=== PATIENT | female | born 1980 | race Caucasian/White ===

== ENCOUNTER 2017-05-02 13:43 | Emergency (ER) | payer OTHER ==
--- NOTE | 2017-05-02 14:03 | EDPHY ---
H & P Time Seen by Provider: 05/02/17 14:00 HPI/ROS: CHIEF COMPLAINT: Back pain HISTORY OF PRESENT ILLNESS: This patient is a 36 year old female arriving with her complaining of lower back pain onset Tuesday evening 04/30/17. She underwent L5/S1 fusion with Dr. Romo at [facility] in November, six months ago. She states her pain has not relieved significantly since the surgery, and she is still taking oxycodone, Tylenol, and tizanidine for pain management. She states she was scheduled for a follow up appointment and MRI in June. Two nights ago, she states she rolled to her right side in bed and felt a sharp pain in her lower back. She reports she tried walking around to relieve it, but was unable to and the pain was so severe it prevented her from lying down. She states she called Dr. Romo's office Tuesday morning, and tried rest, ice, and heat with additional oxycodone for pain relief. She reports she has been unable to appropriately manage or relieve her pain. She states the pain is sharply localized to her sacral area, radiating down both legs and occasionally up her back as well. She denies incontinence or weakness or numbness in her legs. No fever, nausea, vomiting, or other associated symptoms. REVIEW OF SYSTEMS: Constitutional: No fever, no chills Eyes: No visual changes ENT: No sore throat Respiratory: No cough, no shortness of breath Cardiac: No chest pain Gastrointestinal: No nausea, no vomiting, no abdominal pain Genitourinary: No hematuria, no dysuria Skin: No rash Neurological: No headache, no numbness, no weakness Psychiatric: No depression Past Medical/Surgical History: Lumbar (L5/S1) fusion Bowel resection Social History: at bedside. Four children. Smoking Status: Never smoked Physical Exam: General Appearance: Alert, pleasant, appears in pain with movement Eyes: Pupils equal and round, no conjunctival pallor or injection ENT, Mouth: Mucous membranes moist Neck: Normal inspection Respiratory: Lungs are clear to auscultation Cardiovascular: Regular rate and rhythm Gastrointestinal: Abdomen is soft and non-tender Back: Midline lumbar tenderness Neurological: A&O, motor 5/5, patellar DTRs 2+ bilaterally Skin: Warm and dry, no rash Extremities: Nontender, no pedal edema Psychiatric: Mood and affect normal Constitutional: Initial Vital Signs Temperature (C) 36.8 C 05/02/17 13:52 Heart Rate 97 05/02/17 13:52 Respiratory Rate 18 05/02/17 13:52 Blood Pressure 114/74 05/02/17 13:52 O2 Sat (%) 97 05/02/17 13:52 O2 Delivery Mode Room Air Allergies/Adverse Reactions: acetaminophen [From Darvocet-N] Allergy (Verified 05/02/17 13:50) morphine Allergy (Verified 05/02/17 13:50) propoxyphene [From Darvocet-N] Allergy (Verified 05/02/17 13:50) Home Medications: Medication Instructions Recorded Adderall 05/02/17 Ambien 05/02/17 Oxycodone HCl 05/02/17 Synthroid 05/02/17 Xanax 05/02/17 Zoloft 05/02/17 methylPREDNISolone [Medrol Dose 1 each PO AD #1 ea 05/02/17 Karlos] tiZANidine HCL 05/02/17 Medical Decision Making - Diagnostics Imaging Results: Imaging Impressions Lumbar Spine MRI 05/02/17 14:21 Impression: 1. No acute findings in the lumbar spine with no visible etiology for the patient's pain. 2. Transpedicular screw and ra fusion from L5 through S1. 3. Please see findings at specific disk levels. Findings discussed with Lala Crystal, 05/02/2017, at [address] Johny Guerra reviewed the study and agrees with the findings. ED Course/Re-evaluation: This patient is a 36 year old female with history of L5/S1 fusion in November, presenting with a two day history of acute exacerbation of her low back pain. Plan for MRI. IV pain control with Morphine. Decadron 10mg IV given. 15:[address] Ricketts, radiologist. MRI negative for acute processes. 17:[address] Romo. Will f/u with pt in the office. Dr. Romo at bedside. He would like to order lumbar x-ray to further assess. Differential Diagnosis: Differential diagnosis for back pain includes muscular pain, herniated disc, epidural abscess, discitis, spine fracture, intra-abdominal causes and urinary tract infection. - Data Points Medications Given: Discontinued Medications Dexamethasone (Decadron Injection) 10 mg IVP EDNOW ONE Stop: 05/02/17 14:23 Last Admin: 05/02/17 14:36 Dose: 10 mg Hydromorphone HCl (Dilaudid) 1 mg IVP EDNOW ONE Stop: 05/02/17 14:22 Last Admin: 05/02/17 14:35 Dose: 1 mg Hydromorphone HCl (Dilaudid) 1 mg IVP EDNOW ONE Stop: 05/02/17 17:31 Last Admin: 05/02/17 17:30 Dose: 1 mg Ondansetron HCl (Zofran) 4 mg IVP EDNOW ONE Stop: 05/02/17 14:22 Last Admin: 05/02/17 14:35 Dose: 4 mg Departure - Departure Disposition: Home, Routine, Self-Care Clinical Impression: Back pain Qualifiers: Back pain location: low back pain Chronicity: unspecified Back pain laterality : bilateral Sciatica presence: without sciatica Qualified Code(s): M54.5 - Low back pain Condition: Good Instructions: Acute Low Back Pain (ED), Chronic Back Pain (ED) Additional Instructions: 1. Follow up this week with Dr. Romo and your pain management clinic for continued management of your symptoms. 2. We have increased your oxycodone dosage. You may take 40mg as prescribed every six hours. 3. We have prescribed you a Medrol Dosepak. Please take this medication as prescribed. 4. Return to the Emergency Department if you develop numbness or weakness in your legs, trouble controlling your bladder or bowels, uncontrollable pain, or other worsening of condition. Referrals: MARIA VICTORIA ZHANG [Other] - As per Instructions Tj Romo MD [Medical Doctor] - As per Instructions Prescriptions: methylPREDNISolone [Medrol Dose Karlos] 1 each PO AD #1 ea Report Scribed for: Lala Crystal Report Scribed by: Carrie James Date of Report: 05/02/17 Time of Report: 14:02 Physician Review and Approval Statement: 05/02/17 14:03 Portions of this note were transcribed by a medical auditor. I personally performed a history, physical exam, medical decision making, and confirmed accuracy of information the transcribed note.
[2017-05-02] MEDS ORDERED: ONDANSETRON 4 MG/2 ML VIAL IVP ONE (14:21)
[2017-05-02] MEDS ORDERED: HYDROmorphONE/DILAUDID 1 MG/ML SYR IVP ONE ×2 (14:21→17:30)
[2017-05-02] MEDS ORDERED: DEXAMETHASONE 10 MG/ML VIAL IVP ONE (14:22)
[2017-05-02] MEDS ORDERED: GADOBUTROL 10 ML VIAL IVP ONE (14:49)
[2017-05-02] MEDS ORDERED: HYDROmorphONE/DILAUDID 1 MG/ML SYR ONE (17:27)
[2017-05-02 18:09] VITALS: BP 106/68; PULSE 91; RESP 15; TEMP 98.8; O2SAT 95
--- NOTE | 2017-05-02 22:15 | GCON ---
[f rep st] CONSULTATION DATE OF CONSULTATION: 05/02/2017 TIME OF CONSULTATION: 4:45 p.m. HOSPITAL COURSE/HISTORY OF MAJOR MEDICAL FINDINGS: The patient is a 36-year- old female, who is well known to Dr. Romo's office for having a longstanding history of low back pain since she was a child. She was seeing Dr. Long of Pain Management. For several years underwent multiple injections in her lumbar spine. Ultimately, she underwent an MRI, which showed degenerative changes in the bilateral L5-S1 pars defect. She underwent injection with some relief and was taken to the operating room on 11/25/2016 for a right-sided trans lumbar interbody fusion with Dr. Romo. She presents to the ER today with severe acute low back pain. She states that this pain has become acute over the weekend. She does have some lateral pain shooting down her legs. She denies any loss of bowel or bladder control. She tried a few modalities at home including pain medications, ice and rest, which did not help with this pain. She does see Dr. Cruz with pain management. PAST MEDICAL HISTORY: Significant for chronic low back pain. MEDICATIONS: At home include Adderall, Ambien, oxycodone, Synthroid, Xanax, Zoloft, Medrol dose pack, and tizanidine. ALLERGIES: Include acetaminophen, morphine, and Darvocet. PAST SURGICAL HISTORY: Significant for lumbar fusion, as well as a history of bowel resection. SOCIAL HISTORY: The patient's is at bedside. She has never smoked, used any alcohol, or illicit drugs. FAMILY HISTORY: Noncontributory. PHYSICAL EXAMINATION: VITAL SIGNS: Temp 36.8, heart rate 77, respiratory rate is 18, BP is 114/74, and she is 97% on room air. GENERAL: Patient is in no acute distress. NEUROLOGIC: She is alert and oriented x3. She answers questions appropriately, and affect is appropriate given the situation. She is somewhat tearful though during the exam. Cranial nerves 2-12 are grossly intact. Face is symmetric. The patient is a 5/5 and equal in her bilateral upper and bilateral lower extremities including her deltoids, triceps, biceps, wrist flexors, extensors, interossei, intrinsic certified maintenance welder, iliopsoas, hamstrings, quadriceps, plantar flexion, dorsiflexion, EHL. Sensation is intact in bilateral lower extremities. The patient's incision is clean, dry, flat, and intact. DIAGNOSTIC REVIEW: Patient underwent a lumbar spine MRI, which demonstrated no acute findings with evidence of her L5-S1 fusion. There are some mild to moderate degenerative changes noted at L3 and L4-5 without any significant neural foraminal or canal stenosis. ASSESSMENT/PLAN: The patient is a 36-year-old female who presented to [facility] Emergency Room today with an acute exacerbation in her low back pain. Her MRI is negative for any acute compression. At this point in time, we discussed with the patient following with Dr. Cruz to make sure that her pain management is adequately managed, as well as to just discuss possible myofascial treatments for her pain including other injections. We will obtain a set of x-rays just to make sure that her hardware is intact without any evidence of failure. The patient is to follow up with our office after her visit with Dr. Cruz. The patient was seen both by Dr. Romo and myself in the emergency room. /[id number]/MODL MTDD
== END 2017-05-02 18:14 | disposition home or self-care (01) ==
DX: M54.5 Low back pain (principal)
CPT/HCPCS: 96374; A9585; J1170; J2405

== ENCOUNTER 2017-05-08 06:25 | Inpatient (IN) | payer OTHER ==
[2017-05-08] MEDS ORDERED: PROMETHAZINE HCL 25 MG/ML INJ IVP PRN (10:14)
[2017-05-08] MEDS ORDERED: ONDANSETRON 4 MG/2 ML VIAL IVP PRN (10:14)
[2017-05-08] MEDS ORDERED: HYDROmorphONE/DILAUDID 1 MG/ML SYR ONE (10:30)
[2017-05-08] MEDS: NS 1,000 ML IV SCH (10:45)
[2017-05-08] MEDS: HYDROmorphONE/DILAUDID 1 MG/ML SYR IVP PRN ×3 (10:54→20:05)
[2017-05-08] MEDS ORDERED: LUBIPROSTONE 8 MCG CAP PO PRN (11:14)
[2017-05-08] MEDS ORDERED: NON-FORMULARY NEW DRUG (Zolpidem Tartrate [Ambien 10 Mg] 10 MG) PO PRN (11:14)
[2017-05-08] MEDS ORDERED: ALPRAZOLAM PO PRN (11:14)
[2017-05-08] MEDS ORDERED: HYDROmorphONE/DILAUDID 2 MG TAB PO PRN (11:14)
[2017-05-08 11:30] LABS: % IMMATURE GRANULYOCYTES 0.4 % (0.0-1.1); ABSOLUTE IMMATURE GRANULOCYTES 0.03 10^3/uL (0.00-0.10); ADD DIFF? NO; ADD MORPH? NO; ADD SCAN? NO; ATYPICAL LYMPHOCYTE FLAG 20 (0-99); FRAGMENT RBC FLAG 0 (0-99); HEMATOCRIT 24.2 % (38.0-47.0); HEMOGLOBIN 7.7 g/dL (12.6-16.3); LEFT SHIFT FLG 0 (0-99); LIPEMIA HEMOLYSIS FLAG 80 (0-99); MEAN CELL HEMOGLOBIN 26.8 pg (27.9-34.1); MEAN CELL HEMOGLOBIN CONCENTR. 31.8 g/dL (32.4-36.7); MEAN CELL VOLUME 84.3 fL (81.5-99.8); MEAN PLATELET VOLUME 10.2 fL (8.7-11.7); PLATELET CLUMPS FLAG 0 (0-99); PLATELET COUNT 191 10^3/uL (150-400); RED BLOOD CELL COUNT 2.87 10^6/uL (4.18-5.33); RED CELL DISTRIBUTION WIDTH 14.5 % (11.5-15.2)
[2017-05-08] MEDS ORDERED: ALPRAZolam 0.5 MG TAB PO PRN (11:30)
[2017-05-08 11:57] LABS: ANION GAP 10 mEq/L (8-16); CALCIUM 7.8 mg/dL (8.5-10.4); CARBON DIOXIDE 19 mEq/l (22-31); CHLORIDE 115 mEq/L (97-110); CREATININE 0.5 mg/dL (0.6-1.0); GLOMERULAR FILTRATION RATE > 60; GLUCOSE 81 mg/dL (70-100); POTASSIUM 3.7 mEq/L (3.5-5.2); SODIUM 144 mEq/L (134-144)
[2017-05-08 12:00] LABS: INR 1.15 (0.83-1.16); PROTIME(PATIENT) 14.7 SEC (12.0-15.0)
[2017-05-08 12:01] LABS: APTT 28.6 SEC (23.0-38.0)
--- NOTE | 2017-05-08 12:09 | PDGENHP ---
History and Physical - Chief Complaint back pain - History of Present Illness 36 yo F with hx of chronic back pain with continuous narcotic use and dependency and lumbar laminectomy/fusion by Dr. Romo in 11/2016 with ongoing pain since then admitted with worsening pain and fever noted at outside hospital. She reports that for the last several weeks the pain has been much worse to the extent that she has had to call paramedics/firemen to come and help her get out of the bed. She has been seen at [facility] and [facility] over the last several weeks and also by her paperhanger and painter and neurosurgery for her worsening sxs, at least 4 ER visits. The last ER visit was this morning at which time a repeat MRI had a question of edema and enhancement at the L5/S1 vertebral bodies that could possibly be consistent with osteomyelitis. Given that patient is followed by [facility], decision was made to send her here for further evaluation where her NSG team can be involved. History Information - Allergies/Home Medication List Allergies/Adverse Reactions: morphine Allergy (Intermediate, Verified 05/08/17 11:08) Hives propoxyphene [From Darvocet-N] Allergy (Intermediate, Verified 05/08/17 11:08) Rash Home Medications: ALPRAZolam [Xanax] 0.5 - 2 mg PO BID PRN 05/02/17 [Last Taken 05/08/17 02:30] Amphet Asp and D/Amphet [Adderall 20 mg (*)] 10 - 20 mg PO DAILY PRN 05/02/17 [ Last Taken Unknown] Levothyroxine [Synthroid 125 mcg (*)] 125 mcg PO DAILY06 05/02/17 [Last Taken ] Sertraline HCl [Zoloft 100mg (*)] 100 mg PO DAILY 05/02/17 [Last Taken 05/05/17] Zolpidem Tartrate [Ambien 10 mg] 10 mg PO HS PRN 05/02/17 [Last Taken 05/07/17] tiZANidine HCL [Zanaflex] 4 mg PO TID PRN 05/02/17 [Last Taken 05/07/17] HYDROmorphone HCL [Dilaudid 2 mg (*)] 2 mg PO Q4 PRN 05/08/17 [Last Taken 21:00] Herbals/Supplements -Info Only 1 ea PO DAILY 05/08/17 [Last Taken Unknown] Lubiprostone [Amitiza 8 mcg (*)] 8 mcg PO BIDMEAL PRN 05/08/17 [Last Taken 2 Weeks Ago] I have personally reviewed and updated: family history, medical history, social history, surgical history - Past Medical History psychiatric history (depression/anxiety) Additional medical history: hypothyroid. chronic pain with continuous narcotic use and dependency - Surgical History Reports: cholecystectomy, spinal surgery (lumbar fusion/lami l5-s1) Additional surgical history: lap banc. c section. tonsillectomy. small bowel resection x 2. liposuction. breast augmentation - Family History Positive for: non-pertinent - Social History Smoking Status: Former smoker Alcohol Use: Occasionally Drug Use: None Review of Systems ROS: 10pt was reviewed & negative except for what was stated in HPI & below Physical Exam Constitutional: no apparent distress, appears nourished, uncomfortable Eyes: PERRL, anicteric sclera Ears, Nose, Mouth, Throat: moist mucous membranes, hearing normal Cardiovascular: regular rate and rhythym, no murmur, rub, or gallop, No edema Respiratory: no respiratory distress, no rales or rhonchi, clear to auscultation Gastrointestinal: normoactive bowel sounds, soft, non-tender abdomen, no palpable masses Genitourinary: no bladder tenderness Skin: warm, normal color Musculoskeletal: full muscle strength, no muscle tenderness Neurologic: AAOx3, sensation intact bilaterally, CN II-XII Intact Psychiatric: interacting appropriately, not encephalopathic, anxious Lab Data & Imaging Review 05/08/17 11:10 05/08/17 11:10 WBC 7.52 10^3/uL (3.80-9.50) 05/08/17 11:10 RBC 2.87 10^6/uL (4.18-5.33) L 05/08/17 11:10 Hgb 7.7 g/dL (12.6-16.3) L 05/08/17 11:10 Hct 24.2 % (38.0-47.0) L 05/08/17 11:10 MCV 84.3 fL (81.5-99.8) 05/08/17 11:10 MCH 26.8 pg (27.9-34.1) L 05/08/17 11:10 MCHC 31.8 g/dL (32.4-36.7) L 05/08/17 11:10 RDW 14.5 % (11.5-15.2) 05/08/17 11:10 Plt Count 191 10^3/uL (150-400) 05/08/17 11:10 MPV 10.2 fL (8.7-11.7) 05/08/17 11:10 Neut % (Auto) 66.0 % (39.3-74.2) 05/08/17 11:10 Lymph % (Auto) 24.1 % (15.0-45.0) 05/08/17 11:10 [place] % (Auto) 7.6 % (4.5-13.0) 05/08/17 11:10 Eos % (Auto) 1.6 % (0.6-7.6) 05/08/17 11:10 Baso % (Auto) 0.3 % (0.3-1.7) 05/08/17 11:10 Nucleat RBC Rel Count 0.0 % (0.0-0.2) 05/08/17 11:10 Absolute Neuts (auto) 4.97 10^3/uL (1.70-6.50) 05/08/17 11:10 Absolute Lymphs (auto) 1.81 10^3/uL (1.00-3.00) 05/08/17 11:10 Absolute Monos (auto) 0.57 10^3/uL (0.30-0.80) 05/08/17 11:10 Absolute Eos (auto) 0.12 10^3/uL (0.03-0.40) 05/08/17 11:10 Absolute Basos (auto) 0.02 10^3/uL (0.02-0.10) 05/08/17 11:10 Absolute Nucleated RBC 0.00 10^3/uL (0-0.01) 05/08/17 11:10 Immature Gran % 0.4 % (0.0-1.1) 05/08/17 11:10 Immature Gran # 0.03 10^3/uL (0.00-0.10) 05/08/17 11:10 Visualized and Interpreted imaging results: Yes Interpretation: lumbar MRI from one week ago--normal Assessment & Plan Assessment: 36 yo F with chronic back pain and fairly recent lumbar fusion surgery presenting with fever and worsening back pain # acute on chronic back pain: significantly increased from prior to the point where she is having difficulty ambulating and is unable to control her pain on her usual narcotic regimen. NSG has evaluated and plan to look at MRI from [facility] to determine whether there are concerns for osteo or other acute neurosurgical issue. # fever: reported from outside hospital but not present here since admission, normal wbc and no other sirs criteria present. Monitoring. Blood cultures drawn. No murmur. Holding off on antibiotics for now. # acute on chronic anemia: h/h significantly lower than previous values on admission here, even lower than at [facility] earlier this morning. Nothing to suggest acute blood loss on hx or exam. Will repeat h/h, possibly lab error. Consider CT abd to r/o retroperitoneal bleed if remains this low. Will check iron studies/occult blood. # chronic narcotic use and dependency: followed by Dr. Geller of pain management, has been compliant with her pain plan # depression/anxiety: continue home medications, unclear how this is contributing, has a plan to get involved with pain psychologist # IP status, will need > 48 hours stay for eval/mgmt of above given high risk with need for IV opiates and close monitoring Patient is new to my care. Old records reviewed and summarized as above. Care plan reviewed with NSG including plans for infectious w/u.
--- NOTE | 2017-05-08 12:32 | GCON ---
[f rep st] CONSULTATION NEUROSURGICAL CONSULTATION REASON FOR CONSULTATION: Unrelenting back pain and concern for surgical site infection. HOSPITAL COURSE/HISTORY/MAJOR MEDICAL FINDINGS: The patient is a 36-year-old female, who is well known to Dr. Romo's office as she underwent an L5-S1 lumbar fusion for bilateral pars defect on 11/25/2016. The patient tolerated this procedure well; however she developed acute lower back pain approximately 1 week ago and was seen in the [facility] emergency room at that time. She underwent MRI imaging which was negative for any acute findings within her L5-S1 fusion. There was some lnax-jb-udjztjsn degenerative changes noted at L3- 4 and L4-5 without any significant neural foraminal narrowing or canal stenosis. The patient continued to have localized low back pain as well as bilateral/lateral leg pain. She was seen by her pain management doctor on Tuesday, and had some of her pain medications increased and adjusted. The patient had continued unrelenting back pain and went into [facility] for further evaluation. They did an MRI at that time which is not currently available for review. There was some concern about an infection so she was transferred here for further definitive care. The patient today states that approximately 1 month ago, she did have a tooth pulled for an abscess, but denies any other infections. She did state that she had a fever in the last 24 hours, but denies any other nausea or vomiting. Denies any loss of bowel or bladder control. Denies any new weakness. REVIEW OF SYSTEMS: Review of systems is negative other than what is stated in the HPI. Please see pertinent negatives, pertinent positives. PAST MEDICAL HISTORY: Significant for chronic low back pain. PAST SURGICAL HISTORY: Significant of a bowel resection and lumbar fusion. HOME MEDICATIONS: Include Adderall, Ambien, oxycodone, Synthroid, Xanax, Zoloft , Medrol Dosepak and tizanidine. ALLERGIES: Include acetaminophen, morphine and Darvocet. SOCIAL HISTORY: The patient is . She has never smoked, used alcohol or illicit drugs. FAMILY HISTORY: Noncontributory. The patient does see Dr. Roach with pain management. PHYSICAL EXAM: VITAL SIGNS: BP 106/68. Her heart rate is 91. She is 95% on room air and temperature is 37.1, which is also her T-max since admission. NEUROLOGIC: The patient is in no acute distress. She is alert and oriented x3. She answers questions appropriately. Affect is appropriate given situation. Cranial nerves 2-12 are grossly intact. EOMI and PERRLA. The patient has 5/5 and equal in bilateral upper and bilateral lower extremities including her deltoids, triceps, biceps, wrist flexors, extensors, interossei, intrinsic hairmasters manager, iliopsoas, hamstrings, quadriceps, plantar flexion, dorsiflexion , EHL. ASSESSMENT AND PLAN: The patient is a 36-year-old female, who has underwent a lumbar fusion at L5-S1 by Dr. Romo approximately 1 month ago, who has been developing worsening low back pain and bilateral/lateral leg pain. She underwent some outside imaging which had some concerns per their report, and she was transferred here to rule out any definitive infection. Upon examination of the patient today, she is afebrile and her white blood cell count is 7.52. Discussed this in detail with Dr. Tj Romo. At this point in time, we will go ahead and order an ESR and CRP to evaluate for any raised inflammatory markers. I would recommend optimizing pain management. Physical therapy/occupational therapy as tolerated. We will review MRI images once available and loaded into the system. /[id number]/MODL MTDD
[2017-05-08 12:43] LABS: HEMATOCRIT 24.3 % (38.0-47.0)
[2017-05-08] MEDS: oxyCODONE IR 5 MG TAB PO PRN ×3 (13:29→23:13)
[2017-05-08 14:39] LABS: HEMATOCRIT 29.9 % (38.0-47.0); HEMOGLOBIN 9.5 g/dL (12.6-16.3)
[2017-05-08 15:39] LABS: COLOR YELLOW; LEUKOCYTE ESTERASE,URINE NEGATIVE (NEGATIVE); NITRITE,URINE NEGATIVE (NEGATIVE)
[2017-05-08] MEDS: LORazepam 2 MG/ML INJ IVP PRN ×2 (15:51→20:33)
[2017-05-08] MEDS: VANCOMYCIN 1.25 GM in D5W 250 ML IV SCH (18:58)
[2017-05-08] MEDS ORDERED: NALOXONE HCL 0.4 MG/ML INJ IVP PRN (20:54)
[2017-05-08] MEDS: HYDROmorphONE/DILAUDID 6 MG/30 ML PCA IV PRN (21:16)
[2017-05-08] MEDS: CEFEPIME HCL 2 GM in D5W 100 ML IV SCH (21:16)
[2017-05-08] MEDS: ZOLPIDEM TARTRATE 5 MG TAB PO PRN (23:13)
[2017-05-09] MEDS: ACETAMINOPHEN 325 MG TAB PO PRN ×3 (01:01→23:46)
[2017-05-09] MEDS: oxyCODONE IR 5 MG TAB PO PRN ×7 (03:48→23:47)
[2017-05-09] MEDS: LEVOTHYROXINE 125 MCG TAB PO SCH (06:19)
[2017-05-09] MEDS: VANCOMYCIN 1.25 GM in D5W 250 ML IV SCH ×2 (06:28→18:43)
[2017-05-09] MEDS: SERTRALINE HCL 100 MG TAB PO SCH (07:59)
[2017-05-09] MEDS: CEFEPIME HCL 2 GM in D5W 100 ML IV SCH ×2 (07:59→20:30)
--- NOTE | 2017-05-09 08:20 | NEUSURGPN ---
Assessment/Plan: Assessment: 36 yo female that is admitted with acute lower back pain and concern for disc/osteo/infection Plan: -LBP with ?infection: Pt scheduled for IR biopsy today -Spoke with Dr Gale to consult from ID-appreciate his input -PT/OT -discussed with Dr Romo -MRI looks concerning for infection -abx ordered already -pending blood cultures -call with any questions or concerns -pt understands and agrees -RN updated Subjective: Awake and alert. Pt with better pain control. No espinoza/neck/chest/abd or gu complaints. Objective: AAO x 3, PERRLA/EOMI no droop CN 2-12 grossly intact +lt touch 5/5 BUE/BLE = except to bilat q/h/ip due to pain in the back CDI Neuro Check Frequency: per routine Urinary Catheter in Place: No - Physician Discussed Patient with : [facility] Physical Exam - Vitals, I&O, Labs I and O 05/08/17 05/09/17 05/10/17 05:59 05:59 05:59 Intake Total 1319 Output Total 5100 Balance -3781 Weight 63.9 kg Intake: IV Infused (ml) 1319 Ns 1,000 ml @ 100 mls/hr 1319 IV CONT RYAN Rx#: [id number] Output: Urine (ml) 5100 Bedpan 5100 Other: Number of Voids Bedpan 1 Vital Signs Temp Pulse Resp BP Pulse Ox 36.6 C 112 H 16 109/80 98 05/09/17 08:00 05/09/17 06:23 05/09/17 06:23 05/09/17 06:23 05/09/17 06:23 Laboratory Results 05/08/17 14:15 05/08/17 11:10 ICD10 Worksheet Patient Problems: Problems Problem Status Onset Back pain Acute Lumbar radicular pain Acute Lumbar radiculitis Acute - ICD10 Problem Qualifiers (1) Back pain Qualifiers: Back pain location: B Chronicity: C Back pain laterality: B Sciatica presence: S Sciatica laterality: S (2) Lumbar radicular pain (3) Lumbar radiculitis
[2017-05-09] MEDS: HYDROmorphONE/DILAUDID 6 MG/30 ML PCA IV PRN (11:04)
--- NOTE | 2017-05-09 11:51 | HOSPPROG ---
Hospitalist Progress Note Assessment/Plan: 36 yo F with PMH of chronic pain and fairly recent lumbar spinal surgery presenting with increasing lower back pain, fever and e/o discitis/ osteomyelitis on lumbar imaging # discitis vs osteomyelitis: in setting of lumbar fusion in November, plan is for IR biopsy today, started on empiric abx with vanc/cefepime for now. ID consulted. No murmur on exam. Did have dental work last month but no other recent interventions. # gpc bacteremia: from OSH there is initial report of GPC in clusters with further info pending. Repeat cultures with ngtd from yesterday. As above. # acute on chronic pain with continuous narcotic use and dependency: on fairly high doses of pain medications at home chronically making pain mgmt more difficult, pain now controlled with LOAN REVIEW ANALYST. Will attempt to transition back to her home regimen in coming days. # chronic medical issues: depression/anxiety, chronic constipation (bowel protocol), hypothyroid IP status, will need > 48 hours stay for eval/mgmt of above Subjective: no significant overnight events, pain is currently controlled on internal medicine physician Objective: Vital Signs Temp Pulse Resp BP Pulse Ox 36.6 C 112 H 16 109/80 98 05/09/17 08:00 05/09/17 06:23 05/09/17 06:23 05/09/17 06:23 05/09/17 06:23 Laboratory Results 05/08/17 14:15 05/08/17 11:10 05/08/17 05/09/17 05/10/17 05:59 05:59 05:59 Intake Total 1319 Output Total 5100 750 Balance -3781 -750 PT 14.7 SEC (12.0-15.0) 05/08/17 11:30 INR 1.15 (0.83-1.16) 05/08/17 11:30 awake alert nad anicteric op clear rrr no mrg cta soft nt nd no cce warm dry well perfused ICD10 Worksheet Patient Problems: Problems Problem Status Onset Back pain Acute Lumbar radicular pain Acute Lumbar radiculitis Acute
[2017-05-09] MEDS ORDERED: MIDAZOLAM 2 MG/2 ML VIAL ONE ×2 (12:42→13:42)
[2017-05-09] MEDS ORDERED: fentaNYL 100 MCG/2 ML INJ ONE ×2 (12:42→13:43)
[2017-05-09] MEDS ORDERED: LIDOCAINE 1% 300 MG/30 ML SDV ONE ×2 (13:20→13:38)
[2017-05-09] MEDS ORDERED: FLUMAZENIL 0.5 MG/5 ML MDV IVP ONE (13:48)
[2017-05-09] MEDS ORDERED: HYDROmorphONE/DILAUDID 1 MG/ML SYR ONE (15:33)
[2017-05-09] MEDS: HYDROmorphONE/DILAUDID 1 MG/ML SYR IVP PRN (15:38)
--- NOTE | 2017-05-09 16:56 | POSTOPPROG ---
Post Op Note Date of Operation: 05/09/17 Surgeon: Haylee Nicholas Anesthesia: IV Sedation (fentanyl and versed) Pre-op Diagnosis: post fusion Post-op Diagnosis: post fusion Indication: severe pain, elevated inflammatory markers Procedure: S1 bone Bx/aspiration Findings: very soft bone Inf/Abcess present in the surg proc area at time of surgery?: No Depth: Superfical (Skin SQ) EBL: Minimal Complications: none Specimen(s): S1 bone bx and aspiration
--- NOTE | 2017-05-09 18:29 | GCON ---
[f rep st] CONSULTATION INPATIENT INFECTIOUS DISEASE CONSULTATION REFERRING PHYSICIAN: Trevor Hoang PA-C REASON FOR REFERRAL: Diskitis. HISTORY OF PRESENT ILLNESS: The patient is a 36-year-old female, who underwent a laminectomy and fu jerald in November of this year with Dr. Davide Thorne. She presented to [facility] on 2016 complaining of worsening back pain. The patient also noted having fevers as well. The patient had been visiting [facility], as well as [facility] for these worsening symptoms . A repeat MRI during these visit showed enhancement of the L5-S1 vertebral bodies, possibly consis tent with osteomyelitis. She is admitted here for workup and empiric treatment. She was started on both vancomycin and cefepime. Aspiration of the disk space is scheduled for today. PAST MEDICAL HISTORY: 1. Chronic back pain. 2. Depression with anxiety. 3. Hypothyroidism. PAST SURGICAL HISTORY: 1. Status post cholecystectomy. 2. Status post lumbar fusion with laminectomy L5-S1. 3. Status post . 4. Status post tonsillectomy. 5. Status post small bowel resection x2. 6. Status post liposuction. 7. Status post breast augmentation. ANTIBIOTICS: 1. Vancomycin. 2. Cefepime. ALLERGIES: The patient is allergic to morphine and propoxyphene. SOCIAL HISTORY: The patient is a prior tobacco user. Only occasionally has an alcoholic drink. De nies any drug use. FAMILY HISTORY: Noncontributory. REVIEW OF SYSTEMS: Other than that detailed above in history of present illness, a comprehensive 10 -system review is negative. PHYSICAL EXAMINATION: VITAL SIGNS: Temperature maximum is 37.7, temperature current is 36.6, heart rate is 112, respiratory rate is 16, blood pressure is 109/80. GENERAL: The patient is a well-for med, well-nourished female in no acute distress. She is not toxic in appearance. She is alert and oriented x3. She has a pleasant demeanor. HEENT: Normocephalic for age. Atraumatic. No scleral icterus. No oral lesion. No drainage from the nares. Eyes, lids and conjunctivae are within federico l limits. Pupils are equal and round bilaterally. NECK: Supple without meningismus. LUNGS: Elvira r to auscultation bilaterally with good effort. HEART: Regular rate and rhythm. No murmur, rub, o r gallop noted. No significant peripheral edema. SKIN: Warm and dry to the touch. No rash noted. No other lesions noted. MUSCULOSKELETAL: No other muscle belly tenderness is noted. No joint li ne effusion or arthritis is seen. NEURO: Cranial nerves 2-12 seem to be intact. Peripheral sensat ion seems intact in extremities. LABORATORY DATA: The patient has a CBC dated 05/08/2017, shows a white blood cell count 7.5, hemogl obin 7.7, hematocrit 24.2, and platelet count of 191. Differentials within normal limits. Sediment ation rate is 94. Serum chemistries on 05/08/2017 show sodium of 144, potassium of 3.7, chloride of 115, bicarb of 19, BUN of 6, creatinine 0.5. C-reactive protein on 05/08/2017 is 176.1. MICROBIOLOGIC DATA: The patient has blood cultures dated 05/08/2017. Back tissue aspirate dated is pending. ASSESSMENT: Probable diskitis. This is in a site of prior surgery and hardware. The patient did h ave a dental work done 1 month prior. We will wait and see what the cultures of the aspiration reve al. Currently, she is covered on both vancomycin and cefepime. This is broad considering the circu mstance. We will stick with this until we get some guidance from Gram stain or culture. PLAN: 1. Continue both vancomycin and cefepime. 2. Check Vanco trough prior to 4th dose. 3. Follow up on culture data. Narrow as results dictate. /[id number]/MODL
[2017-05-09] MEDS: ONDANSETRON DISINTEGRATING 4 MG TAB PO PRN (20:30)
[2017-05-09] MEDS: LORazepam 2 MG/ML INJ IVP PRN (20:47)
[2017-05-09] MEDS: ZOLPIDEM TARTRATE 5 MG TAB PO PRN (23:52)
[2017-05-10] MEDS: oxyCODONE IR 5 MG TAB PO PRN ×7 (02:00→22:21)
[2017-05-10] MEDS: LEVOTHYROXINE 125 MCG TAB PO SCH (05:55)
[2017-05-10] MEDS: VANCOMYCIN 1.25 GM in D5W 250 ML IV SCH ×2 (05:55→19:15)
[2017-05-10] MEDS: HYDROmorphONE/DILAUDID 6 MG/30 ML PCA IV PRN (07:42)
--- NOTE | 2017-05-10 08:59 | NEUSURGPN ---
<Maddi Slade - Last Filed: 05/10/17 08:56> Assessment/Plan: Assessment: 36 yo female that is admitted with acute lower back pain and concern for disc/osteo/infection Plan: -LBP with ?infection: Pt had IR biopsy yesterday- results pending -Spoke with Dr Gale to consult from ID-appreciate his input -PT/OT- may be up ad keanu -MRI looks concerning for infection -abx ordered already- On cefepime and Vanc currently -pending blood cultures -ESR and CRP elevated -call with any questions or concerns -Patient seen and discussed with Dr. Romo Subjective: Awake and alert. Has not been out of bed yet. Worsening back pain today after IR biopsy yesterday. Has bilateral leg pain in hips/thighs. Objective: NAD, VSS +lt touch 5/5 BUE/BLE = except to bilat q/h/ip due to pain in the back CDI - Physician Discussed Patient with : Clarissa Patient Seen by : Clarissa Neurosurgery Physical Exam - Vitals, I&O, Labs I and O 05/09/17 05/10/17 05/11/17 05:59 05:59 05:59 Intake Total 1319 2917.5 Output Total 5100 1600 Balance -3781 1317.5 Weight 63.9 kg Intake: IV Infused (ml) 1319 2917.5 HYDROmorphone HCL See 33.5 Protocol IV PRN PRN Rx#: [id number] Ns 1,000 ml @ 100 mls/hr 1319 2884 IV CONT RYAN Rx#: [id number] Output: Urine (ml) 5100 1600 Bedpan 5100 1600 Other: Number of Voids Bedpan 1 1 Microbiology 05/09/17 15:00 Gram Stain - Final Back - Tissue Vital Signs Temp Pulse Resp BP Pulse Ox 36.7 C 105 H 17 119/78 92 05/10/17 00:00 05/10/17 00:00 05/10/17 00:00 05/10/17 00:00 05/10/17 00:00 Laboratory Results 05/08/17 14:15 05/08/17 11:10 ICD10 Worksheet Patient Problems: Problems Problem Status Onset Back pain Acute Lumbar radicular pain Acute Lumbar radiculitis Acute <Tj Romo - Last Filed: 05/10/17 09:26> Assessment/Plan: I met with the patient this morning. Will try to increase her activity today. If she tolerates being upright, then we can get her activity more ad keanu. My suspicion for infection is low as the changes on her imaging show changes but she is also about 6 months out from fusion surgery. Will await the biopsy results and continue with pain medications. All questions answered. Her MRI does NOT show any concerning stenosis or nerve root compression. No surgical or re-imaging plans indicated at this time and will defer to ID and Medicine on course of treatment. Appreciate their assistance in this very difficult case. Neurosurgery Physical Exam - Vitals, I&O, Labs I and O 05/09/17 05/10/17 05/11/17 05:59 05:59 05:59 Intake Total 1319 2917.5 Output Total 5100 1600 Balance -3781 1317.5 Weight 63.9 kg Intake: IV Infused (ml) 1319 2917.5 HYDROmorphone HCL See 33.5 Protocol IV PRN PRN Rx#: [id number] Ns 1,000 ml @ 100 mls/hr 1319 2884 IV CONT RYAN Rx#: [id number] Output: Urine (ml) 5100 1600 Bedpan 5100 1600 Other: Number of Voids Bedpan 1 1 Microbiology 05/09/17 15:00 Gram Stain - Final Back - Tissue Vital Signs Temp Pulse Resp BP Pulse Ox 36.7 C 94 16 115/77 95 05/10/17 00:00 05/10/17 08:00 05/10/17 08:00 05/10/17 08:00 05/10/17 08:00 Laboratory Results 05/08/17 14:15 05/08/17 11:10
[2017-05-10] MEDS: CEFEPIME HCL 2 GM in D5W 100 ML IV SCH ×2 (09:09→20:53)
[2017-05-10] MEDS: SERTRALINE HCL 100 MG TAB PO SCH (09:09)
--- NOTE | 2017-05-10 11:54 | PCMIDPN ---
Assessment/Plan: Assessment/Plan: 1. Possible diskitis L5,S1: - s/p bone biopsy - Pt was given vanco,cefepime at [facility] prior to transfer here. -GS with no org, Cultures are pending -Blood cx here are ngtd but are after antbx from [facility]. -Records from [facility] reviewed on [facility]. She did not have blood cx done there. UA and culture were unremarkable there. -Dental infection with possible abscess per patient one month ago, s/p amox x 10 days. -c/o of dysuria at present, will recheck urine -Continue vanco, cefepime for now while cx in progress and have further matured. Check vanco trough later today.Add LFT to blood work -REviewed lab results, and cultures with patient today. Reviewed plan of care. Meds vanco 1.25gm q12- cefepime 2g q12- Subjective: Afebrile. Sitting up in chair at present. Hasn't slept well past two days.Denies sob, abd pain. no recent diarrhea although admits to diarrhea a couple of weeks ago for a few days wherein she finally took immodium. She tells me that a month ago she did have a possible dental abscess and she was prescribed amoxicillin a couple days before she had tooth extracted and area cleaned out. She still has another took in upper right that problems. She took amox for 10 days. Objective: Vital Signs Temp Pulse Resp BP Pulse Ox 36.7 C 94 16 115/77 95 05/10/17 00:00 05/10/17 08:00 05/10/17 08:00 05/10/17 08:00 05/10/17 08:00 Microbiology 05/09/17 15:00 Gram Stain - Final Back - Tissue Laboratory Results 05/08/17 14:15 05/08/17 11:10 05/09/17 05/10/17 05/11/17 05:59 05:59 05:59 Intake Total 1319 2917.5 Output Total 5100 1600 Balance -3781 1317.5 ESR 94 MM/HR (0-20) H 05/08/17 12:36 C-Reactive Protein 176.1 mg/L (<10.0) H 05/08/17 12:36 - Physical Exam General Appearance: alert, no apparent distress Respiratory: lungs clear Cardiac/Chest: regular rate, rhythm Extremities: No swelling Abdomen: normal bowel sounds, non-tender, soft, No distended Skin: No erythema ICD10 Worksheet Patient Problems: Problems Problem Status Onset Back pain Acute Lumbar radicular pain Acute Lumbar radiculitis Acute
--- NOTE | 2017-05-10 15:09 | HOSPPROG ---
Hospitalist Progress Note Assessment/Plan: 36 yo F with PMH of chronic pain and fairly recent lumbar spinal surgery presenting with increasing lower back pain, fever and e/o discitis/ osteomyelitis on lumbar imaging # discitis vs osteomyelitis: in setting of lumbar fusion in November, plan is for IR biopsy today, started on empiric abx with vanc/cefepime for now. ID consulted. No murmur on exam. Did have dental work last month but no other recent interventions. Pain and mobility improving. # gpc bacteremia: from OSH there is initial report of GPC in [facility] per call from their micro lab, though the report is not available in [facility]. Repeat cultures here with ngtd. # acute on chronic pain with continuous narcotic use and dependency: on fairly high doses of pain medications at home chronically making pain mgmt more difficult, pain now controlled with FINANCIAL ANALYSIS ADVISOR. Will attempt to transition back to her home regimen in coming days. # chronic medical issues: depression/anxiety, chronic constipation (bowel protocol), hypothyroid IP status, will need > 48 hours stay for eval/mgmt of above Subjective: no significant overnight events, patient feeling a bit better with pain improved and able to walk some on her own Objective: Vital Signs Temp Pulse Resp BP Pulse Ox 36.7 C 94 16 115/77 95 05/10/17 00:00 05/10/17 08:00 05/10/17 08:00 05/10/17 08:00 05/10/17 08:00 Microbiology 05/09/17 15:00 Mycobacterial Smear (ZAINAB) - Final Back - Tissue 05/09/17 15:00 Gram Stain - Final Back - Tissue Laboratory Results 05/08/17 14:15 05/08/17 11:10 05/09/17 05/10/17 05/11/17 05:59 05:59 05:59 Intake Total 1319 2917.5 Output Total 5100 1600 Balance -3781 1317.5 PT 14.7 SEC (12.0-15.0) 05/08/17 11:30 INR 1.15 (0.83-1.16) 05/08/17 11:30 awake alert nad anicteric op clear rrr no mrg cta soft nt nd no cce warm dry well perfused ICD10 Worksheet Patient Problems: Problems Problem Status Onset Back pain Acute Lumbar radicular pain Acute Lumbar radiculitis Acute
[2017-05-10 16:54] LABS: COLOR PALE YELLOW; LEUKOCYTE ESTERASE,URINE NEGATIVE (NEGATIVE); NITRITE,URINE NEGATIVE (NEGATIVE)
[2017-05-10] MEDS: ACETAMINOPHEN 325 MG TAB PO PRN (18:15)
[2017-05-10] MEDS: ONDANSETRON DISINTEGRATING 4 MG TAB PO PRN (21:13)
[2017-05-10] MEDS: ZOLPIDEM TARTRATE 5 MG TAB PO PRN (22:25)
[2017-05-11] MEDS: NS 1,000 ML IV SCH ×2 (00:28→13:23)
[2017-05-11] MEDS: oxyCODONE IR 5 MG TAB PO PRN ×8 (01:31→23:44)
[2017-05-11] MEDS: HYDROmorphONE/DILAUDID 6 MG/30 ML PCA IV PRN (04:54)
[2017-05-11] MEDS: LEVOTHYROXINE 125 MCG TAB PO SCH (05:00)
[2017-05-11 05:11] LABS: % IMMATURE GRANULYOCYTES 0.5 % (0.0-1.1); ABSOLUTE IMMATURE GRANULOCYTES 0.03 10^3/uL (0.00-0.10); ADD DIFF? NO; ADD MORPH? NO; ADD SCAN? NO; ATYPICAL LYMPHOCYTE FLAG 40 (0-99); FRAGMENT RBC FLAG 0 (0-99); HEMATOCRIT 27.6 % (38.0-47.0); HEMOGLOBIN 8.7 g/dL (12.6-16.3); LEFT SHIFT FLG 0 (0-99); LIPEMIA HEMOLYSIS FLAG 80 (0-99); MEAN CELL HEMOGLOBIN CONCENTR. 31.5 g/dL (32.4-36.7); MEAN CELL VOLUME 82.6 fL (81.5-99.8); MEAN PLATELET VOLUME 9.8 fL (8.7-11.7); PLATELET CLUMPS FLAG 0 (0-99); PLATELET COUNT 307 10^3/uL (150-400); RED BLOOD CELL COUNT 3.34 10^6/uL (4.18-5.33); RED CELL DISTRIBUTION WIDTH 13.8 % (11.5-15.2)
[2017-05-11 05:27] LABS: ALANINE AMINOTRANSFERASE 80 IU/L (9-52); ALBUMIN 2.7 g/dL (3.5-5.0); ALKALINE PHOSPHATASE 214 IU/L (38-126); ANION GAP 7 mEq/L (8-16); ASPARTATE AMINOTRANSFERASE 55 IU/L (14-46); BILIRUBIN,TOTAL 0.5 mg/dL (0.1-1.4); CALCIUM 9.1 mg/dL (8.5-10.4); CARBON DIOXIDE 26 mEq/l (22-31); CHLORIDE 107 mEq/L (97-110); CREATININE 0.6 mg/dL (0.6-1.0); GLOMERULAR FILTRATION RATE > 60; GLUCOSE 99 mg/dL (70-100); SODIUM 140 mEq/L (134-144); TOTAL PROTEIN 5.6 g/dL (6.3-8.2)
[2017-05-11] MEDS: VANCOMYCIN 1.25 GM in D5W 250 ML IV SCH ×2 (07:36→19:11)
[2017-05-11] MEDS: ONDANSETRON DISINTEGRATING 4 MG TAB PO PRN ×3 (07:37→22:17)
--- NOTE | 2017-05-11 07:48 | SOAPPROG ---
SOAP Progress Note Assessment/Plan: Assessment: 36yo female 6 months out from lumbar fusion with severe back pain and concern for infection Neuro intact with ongoing LBP s/p IR guided biopsy results pending Plan: activity as tolerated continue pain mgmt. await biopsy results continue Abx per ID 05/11/17 07:46 Subjective: out of bed in chair. Still with severe LBP denies weakness or tingling. Objective: Vital Signs Temp Pulse Resp BP Pulse Ox 36.6 C 62 16 109/64 98 05/11/17 07:30 05/11/17 07:30 05/11/17 07:30 05/11/17 07:30 05/11/17 07:30 Microbiology 05/09/17 15:00 Mycobacterial Smear (ZAINAB) - Final Back - Tissue 05/09/17 15:00 Gram Stain - Final Back - Tissue Laboratory Results 05/11/17 04:55 05/11/17 04:55 05/10/17 05/11/17 05/12/17 05:59 05:59 05:59 Intake Total 2917.5 3033 Output Total 1600 875 Balance 1317.5 2158 PT 14.7 SEC (12.0-15.0) 05/08/17 11:30 INR 1.15 (0.83-1.16) 05/08/17 11:30 Neuro: BHAT, sens +Lt ICD10 Worksheet Patient Problems: Problems Problem Status Onset Back pain Acute Lumbar radicular pain Acute Lumbar radiculitis Acute
[2017-05-11] MEDS: SERTRALINE HCL 100 MG TAB PO SCH (08:06)
[2017-05-11] MEDS: ACETAMINOPHEN 325 MG TAB PO PRN ×3 (08:07→22:11)
[2017-05-11] MEDS: CEFEPIME HCL 2 GM in D5W 100 ML IV SCH (09:36)
--- NOTE | 2017-05-11 12:35 | PCMIDPN ---
Assessment/Plan: # S aureus bacteremia, unclear source. Possible discitis L5-S1. Also with #20 weight loss unintentional x 6 mo. Blood cx at OSH with SA, repeat cx here are NGTD after 1-2 doses antibiotics, no stigmata endocarditis --dc cefepime --awaiting lab report from outside hospital, continue coverage with vancomycin until report reviewed (Cx not listed in [facility] for some reason); Vanco T a bit low but hold off on repeat trough bc may be able to switch to cefazolin --obtain CT lumbar spine without contrast per neursurg recs --obtain CT a/p with/without constant to eval weight loss, other source of bacteremia --reviewed need for PICC line, length of therapy as long as 8 weeks, side effects of vancomycin # Dental caries L upper molar - mild surrounding gum inflammation, doubt source of SA bacteremia # H/o gastric banding meds vancomycin 1.25gm IV q12h, #3 cefepime 2gm IV q12h, #3 microbiology 05/08 blood cx (2) NGTD 05/09 bone cx : gram stain neg; cx NGTD Subjective: significant improvement in back pain since admit Objective: Vital Signs Temp Pulse Resp BP Pulse Ox 36.6 C 86 16 102/54 L 94 05/11/17 07:30 05/11/17 12:07 05/11/17 07:30 05/11/17 12:07 05/11/17 10:00 Microbiology 05/09/17 15:00 Mycobacterial Smear (ZAINAB) - Final Back - Tissue 05/09/17 15:00 Gram Stain - Final Back - Tissue Laboratory Results 05/11/17 04:55 05/11/17 04:55 05/10/17 05/11/17 05/12/17 05:59 05:59 05:59 Intake Total 2917.5 3033 Output Total 1600 875 Balance 1317.5 2158 ESR 94 MM/HR (0-20) H 05/08/17 12:36 C-Reactive Protein 176.1 mg/L (<10.0) H 05/08/17 12:36 - Physical Exam General Appearance: alert, no apparent distress EENT: poor dentition, No thrush Respiratory: lungs clear Cardiac/Chest: regular rate, rhythm, No systolic murmur Extremities: No pedal edema Abdomen: normal bowel sounds, non-tender, other (band access non-tender - located mid L abdomen) Pelvic Exam: No espinoza Skin: No rash Neuro/Psych: alert, normal mood/affect, oriented x 3 - Time Spent With Patient Time Spent with Patient: greater than 35 minutes (Case discussed with Dr. Romo ) Time Spent with Patient: Greater than 35 minutes spent on this patients care, greater than 50% of time spent counseling, educating, and coordinating care regarding the above mentioned plan. ICD10 Worksheet Patient Problems: Problems Problem Status Onset Back pain Acute Lumbar radicular pain Acute Lumbar radiculitis Acute
[2017-05-11] MEDS ORDERED: ALTEPLASE 2 MG VIAL IVP PRN (15:49)
--- NOTE | 2017-05-11 17:00 | HOSPPROG ---
Hospitalist Progress Note Assessment/Plan: 36 yo F with PMH of chronic pain and fairly recent lumbar spinal surgery presenting with increasing lower back pain, fever and e/o discitis/ osteomyelitis on lumbar imaging # discitis vs osteomyelitis: in setting of fairly remote lumbar fusion and s/p biopsy with results pending from that. Abx initially with vanc/cefepime but now vanc alone as next. plan for repeat ct lumbar spine per nsg today. # staph auerus bacteremia: reported from outside hospital, unclear source, continued on vanco pending final s/s, plan for ct c/a/p to eval for other etiology of infection # acute on chronic pain with continuous narcotic use and dependency: on fairly high doses of pain medications at home chronically making pain mgmt more difficult, pain now controlled with REGIONAL GUIDE. Will attempt to transition back to her home regimen in coming days. # chronic medical issues: depression/anxiety, chronic constipation (bowel protocol), hypothyroid IP status, will need > 48 hours stay for eval/mgmt of above Subjective: no significant overnight events, getting multiple imaging studies today Objective: Vital Signs Temp Pulse Resp BP Pulse Ox 36.8 C 86 12 100/66 96 05/11/17 15:51 05/11/17 12:07 05/11/17 15:51 05/11/17 15:51 05/11/17 15:51 Microbiology 05/09/17 15:00 Gram Stain - Final Back - Tissue 05/09/17 15:00 Mycobacterial Smear (ZAINAB) - Final Back - Tissue Laboratory Results 05/11/17 04:55 05/11/17 04:55 05/10/17 05/11/17 05/12/17 05:59 05:59 05:59 Intake Total 2917.5 3033 Output Total 1600 875 Balance 1317.5 2158 PT 14.7 SEC (12.0-15.0) 05/08/17 11:30 INR 1.15 (0.83-1.16) 05/08/17 11:30 awake alert nad anicteric rrr no mrg cta b ICD10 Worksheet Patient Problems: Problems Problem Status Onset Back pain Acute Lumbar radicular pain Acute Lumbar radiculitis Acute
[2017-05-11] MEDS ORDERED: IOPAMIDOL (ISOVUE-300) 100 ML BTL ONE (18:41)
[2017-05-11] MEDS: ZOLPIDEM TARTRATE 5 MG TAB PO PRN (22:12)
[2017-05-12] MEDS: NS 1,000 ML IV SCH (01:24)
[2017-05-12] MEDS: oxyCODONE IR 5 MG TAB PO PRN ×6 (05:13→22:03)
[2017-05-12] MEDS: LEVOTHYROXINE 125 MCG TAB PO SCH (05:13)
[2017-05-12] MEDS: VANCOMYCIN 1.25 GM in D5W 250 ML IV SCH ×2 (06:05→19:05)
--- NOTE | 2017-05-12 07:36 | NEUSURGPN ---
Assessment/Plan: Assessment: 36 yo female that is admitted with acute lower back pain and concern for disc/osteo/infection Plan: -IR biopsy - results pending -Appreciate ID input, currently r/o other sources of infection. Patient states she feels better after antibiotic starting -PT/OT- may be up ad keanu -MRI looks concerning for infection -abx ordered already- On cefepime and Vanc currently -call with any questions or concerns -Patient seen and discussed with Dr. Romo Subjective: back pain improved. Objective: NAD A&OX3 MAEx4 5/5 and equal in BUE and BLE. Incision c/d/i - Physician Patient Seen by : Clarissa Neurosurgery Physical Exam - Vitals, I&O, Labs I and O 05/11/17 05/12/17 05/13/17 05:59 05:59 05:59 Intake Total 3033 3321 Output Total 875 3350 Balance 2158 -29 Intake: Oral (ml) 450 1000 IV Intake (ml) 1247 IV Infused (ml) 1336 2321 Cefepime HCl 2 gm In D5w 100 100 100 ml @ 200 mls/hr IV Q12HRS RYAN Rx#:[id number] Ns 1,000 ml @ 100 mls/hr 986 1721 IV CONT RYAN Rx#: [id number] Vancomycin 1.25 gm In D5w 250 500 250 ml @ 166.667 mls/hr IV Q12@0700,1900 RYAN Rx#: [id number] Output: Urine (ml) 875 3350 Bedpan 875 1900 Toilet 1450 Other: Intake Quantity Yes Sufficient Number of Voids Toilet 2 Microbiology 05/09/17 15:00 Gram Stain - Final Back - Tissue Vital Signs Temp Pulse Resp BP Pulse Ox 36.9 C 84 14 108/69 98 05/12/17 07:27 05/12/17 07:27 05/12/17 07:27 05/12/17 07:27 05/12/17 07:27 Laboratory Results 05/11/17 04:55 05/11/17 04:55 ICD10 Worksheet Patient Problems: Problems Problem Status Onset Back pain Acute Lumbar radicular pain Acute Lumbar radiculitis Acute
[2017-05-12] MEDS: SERTRALINE HCL 100 MG TAB PO SCH (08:24)
--- NOTE | 2017-05-12 12:50 | HOSPPROG ---
Hospitalist Progress Note Assessment/Plan: # discitis vs osteomyelitis: in setting of fairly remote lumbar fusion and s/p biopsy with results pending from that. Abx initially with vanc/cefepime but now vanc alone as next. plan for repeat ct lumbar spine per nsg today. # staph auerus bacteremia: reported from outside hospital, unclear source, continued on vanco pending final s/s, plan for ct c/a/p to eval for other etiology of infection # acute on chronic pain with continuous narcotic use and dependency: on fairly high doses of pain medications at home chronically making pain mgmt more difficult, pain now controlled with VISUAL MERCHANDISER. Will attempt to transition back to her home regimen in coming days. # chronic medical issues: depression/anxiety, chronic constipation (bowel protocol), hypothyroid DIAGNOSES: -L5-S1 diskitis, question of osteomyelitis, MRI scan done at outside hospital -Staph aureus bacteremia ( cultures done at outside hospital) -Acute lumbar spine pain due to the above -Chronic lumbar pain with chronic pain syndrome and chronic daily prescribed narcotic use -Acute anemia likely due to the infectious disease as above PLANS: -PICC catheter has now been placed -continue vancomycin -await final antibiotic sensitivity results from cultures from outside hospital -Await results of initial lumbar spine biopsy -Repeat lumbar spine biopsy -will discuss with case management to be certain we are working on arranging home IV therapy which she will need for 6 weeks of antibiotics SUBJECTIVE: Less lumbar pain, actually was able to get out of bed and walk today No chills or sweats Eating well No new radicular or neurologic symptoms, emptying bladder okay She was having nausea and dizziness from using the VISUAL MERCHANDISER so she has stopped that and is using her baseline oral narcotic analgesics OBJECTIVE Vitals reviewed: stable without fever Exam: alert oriented skin warm dry color ok resps not labored lungs clear BSs heart regular limbs warm, no edema PICC line placed today, site ok All cultures done so far at this hospital with no growth PROCEDURES DURING THIS ADMISSION: -PICC catheter placement -MRI of lumbar spine -CT scan of lumbar spine -CT scan of abdomen -CT scan-guided biopsy of bone from lumbar spine Objective: Vital Signs Temp Pulse Resp BP Pulse Ox 36.9 C 84 14 108/69 98 05/12/17 07:27 05/12/17 07:27 05/12/17 07:27 05/12/17 07:27 05/12/17 07:27 Microbiology 05/09/17 15:00 Gram Stain - Final Back - Tissue Laboratory Results 05/11/17 04:55 05/11/17 04:55 05/11/17 05/12/17 05/13/17 06:59 06:59 06:59 Intake Total 3033 3321 Output Total 874 3350 Balance 2158 -29 PT 14.7 SEC (12.0-15.0) 05/08/17 11:30 INR 1.15 (0.83-1.16) 05/08/17 11:30 - Time Spent With Patient Time Spent with Patient: greater than 35 minutes Time Spent with Patient: Greater than 35 minutes spent on this patients care, greater than 50% of time spent counseling, educating, and coordinating care regarding the above mentioned plan. ICD10 Worksheet Patient Problems: Problems Problem Status Onset Back pain Acute Lumbar radicular pain Acute Lumbar radiculitis Acute
[2017-05-12] MEDS: ACETAMINOPHEN 325 MG TAB PO PRN ×2 (14:42→19:06)
--- NOTE | 2017-05-12 17:47 | PCMIDPN ---
Assessment/Plan: Assessment: MSSA diskitis - with bacteremia at an outside hospital ( reportedly). Continuing on vancomycin monotherapy. Awaiting for confirmation of MSSA versus MRSA. Plan: 1. continue vancomycin. 2. follow up on outpatient blood isolate as well as continued sensitivity identification of disc aspirate isolate. Subjective: Patient is feeling better. She is resting in her hospital bed. No fevers or chills. Tolerating vancomycin without issue. Objective: Vancomycin #4 Vital Signs Temp Pulse Resp BP Pulse Ox 36.5 C 71 16 103/67 95 05/12/17 16:00 05/12/17 16:00 05/12/17 16:00 05/12/17 16:00 05/12/17 16:00 Microbiology 05/09/17 15:00 Gram Stain - Final Back - Tissue 05/09/17 15:00 Mycobacterial Smear (ZAINAB) - Final Back - Tissue Laboratory Results 05/11/17 04:55 05/11/17 04:55 05/11/17 05/12/17 05/13/17 05:59 05:59 05:59 Intake Total 3033 3321 Output Total 875 3350 1000 Balance 2158 -29 -1000 ESR 94 MM/HR (0-20) H 05/08/17 12:36 C-Reactive Protein 176.1 mg/L (<10.0) H 05/08/17 12:36 - Physical Exam General Appearance: WD/WN, alert, no apparent distress, non-toxic Respiratory: lungs clear, normal breath sounds, No respiratory distress Cardiac/Chest: regular rate, rhythm, No tachycardia Skin: normal color, warm/dry, No rash Neuro/Psych: alert, normal mood/affect, oriented x 3 ICD10 Worksheet Patient Problems: Problems Problem Status Onset Back pain Acute Lumbar radicular pain Acute Lumbar radiculitis Acute
[2017-05-12] MEDS: ZOLPIDEM TARTRATE 5 MG TAB PO PRN (21:59)
[2017-05-12 22:03] VITALS: O2SAT 96
[2017-05-13] MEDS: ACETAMINOPHEN 325 MG TAB PO PRN ×3 (02:57→13:40)
[2017-05-13] MEDS: oxyCODONE IR 5 MG TAB PO PRN ×4 (02:58→13:37)
[2017-05-13] MEDS: LEVOTHYROXINE 125 MCG TAB PO SCH (06:30)
[2017-05-13] MEDS: VANCOMYCIN 1.25 GM in D5W 250 ML IV SCH (06:31)
--- NOTE | 2017-05-13 08:17 | NEUSURGPN ---
Assessment/Plan: Assessment: 36 yo female that is admitted with acute lower back pain with disc/ osteo staph aureus Plan: -IR biopsy - staph aureus -Appreciate ID input, will defer to them on abx regiment and durations, On cefepime and Vanc currently -PT/OT- may be up ad keanu -Do not recommend surgical intervention at this time. Would optimize medical management. Recommend repeat MRI and xrays in 2 weeks. Patient should follow up with our office to review at that time. -call with any questions or concerns -If there is any change in neuro/motor exam please notify NS. -If patient doing well with abx regiment, may follow peripherally for the weekend. Will check in with nurse later today. -Discussed with Dr. Romo Subjective: Back pain improved. Some spasms/pain with increased movement Objective: NAD A&Ox3 MAEx4 5/5 and equal in BUE and BLE. Neurosurgery Physical Exam - Vitals, I&O, Labs I and O 05/12/17 05/13/17 05/14/17 05:59 05:59 05:59 Intake Total 3321 1470 Output Total 3350 3200 Balance -29 -1730 Intake: Oral (ml) 1000 1200 IV Infused (ml) 2321 270 Cefepime HCl 2 gm In D5w 100 100 ml @ 200 mls/hr IV Q12HRS RYAN Rx#:[id number] Ns 1,000 ml @ 100 mls/hr 1721 20 IV CONT RYAN Rx#: [id number] Vancomycin 1.25 gm In D5w 500 250 250 ml @ 166.667 mls/hr IV Q12@0700,1900 RYAN Rx#: [id number] Output: Urine (ml) 3350 3200 Bedpan 1900 Toilet 1450 3200 Other: Intake Quantity Yes Sufficient Number of Voids Toilet 2 1 Microbiology 05/09/17 15:00 Gram Stain - Final Back - Tissue 05/09/17 15:00 Mycobacterial Smear (ZAINAB) - Final Back - Tissue Vital Signs Temp Pulse Resp BP Pulse Ox 36.8 C 65 16 92/46 L 96 05/12/17 22:01 05/13/17 03:00 05/12/17 22:01 05/13/17 03:00 05/13/17 03:00 Laboratory Results 05/11/17 04:55 05/11/17 04:55 ICD10 Worksheet Patient Problems: Problems Problem Status Onset Back pain Acute Lumbar radicular pain Acute Lumbar radiculitis Acute
[2017-05-13 08:23] VITALS: BP 98/48; PULSE 77; RESP 14; TEMP 98
[2017-05-13] MEDS: SERTRALINE HCL 100 MG TAB PO SCH (09:38)
--- NOTE | 2017-05-13 09:45 | PCMIDPN ---
Assessment/Plan: # MSSA bacteremia and L5-S1 discitis & OM. -- 8 week antibiotics, change to cefazolin for MSSA, stop 07/04 # Dental caries L upper molar - mild surrounding gum inflammation, doubt source of SA bacteremia # H/o gastric banding meds vancomycin 1.25gm IV q12h, #5 microbiology 05/08 blood cx (2) NGTD 05/09 bone cx : gram stain neg; cx NGTD Subjective: back pain continues to be improved No itching, no diarrhea Objective: Vital Signs Temp Pulse Resp BP Pulse Ox 36.6 C 77 14 98/48 L 96 05/13/17 08:00 05/13/17 08:00 05/13/17 08:00 05/13/17 08:00 05/13/17 08:00 Microbiology 05/09/17 15:00 Gram Stain - Final Back - Tissue 05/09/17 15:00 Mycobacterial Smear (ZAINAB) - Final Back - Tissue Laboratory Results 05/11/17 04:55 05/11/17 04:55 05/12/17 05/13/17 05/14/17 05:59 05:59 05:59 Intake Total 3321 1470 Output Total 3350 3200 Balance -29 -1730 ESR 94 MM/HR (0-20) H 05/08/17 12:36 C-Reactive Protein 176.1 mg/L (<10.0) H 05/08/17 12:36 - Physical Exam General Appearance: alert, no apparent distress Respiratory: No accessory muscle use Skin: No rash Neuro/Psych: alert, normal mood/affect, oriented x 3 - Line/s RUE PICC Lines: No drainage, No erythema - Time Spent With Patient Time Spent with Patient: greater than 35 minutes (reviewed course of IV therapy , signs for worsening disease such as marked increase in back pain, fever ; reviewed risks and benefits of antibiotics and modality of administration) Time Spent with Patient: Greater than 35 minutes spent on this patients care, greater than 50% of time spent counseling, educating, and coordinating care regarding the above mentioned plan. ICD10 Worksheet Patient Problems: Problems Problem Status Onset Back pain Acute Lumbar radicular pain Acute Lumbar radiculitis Acute
--- NOTE | 2017-05-13 09:47 | PDIAF ---
- Diagnosis Diagnosis: MSSA L5-S1 discitis/OM and bacteremia Code Status: Full Code - Medication Management Discharge Medications: Medications to Continue on Transfer ALPRAZolam [Xanax] 0.5 - 2 mg PO BID PRN 05/02/17 [Last Taken 05/08/17 02:30] Amphet Asp and D/Amphet [Adderall 20 mg (*)] 10 - 20 mg PO DAILY PRN 05/02/17 [ Last Taken Unknown] Levothyroxine [Synthroid 125 mcg (*)] 125 mcg PO DAILY06 05/02/17 [Last Taken ] Sertraline HCl [Zoloft 100mg (*)] 100 mg PO DAILY 05/02/17 [Last Taken 05/05/17] Zolpidem Tartrate [Ambien 10 mg] 10 mg PO HS PRN 05/02/17 [Last Taken 05/07/17] tiZANidine HCL [Zanaflex] 4 mg PO TID PRN 05/02/17 [Last Taken 05/07/17] HYDROmorphone HCL [Dilaudid 2 mg (*)] 2 mg PO Q4 PRN 05/08/17 [Last Taken 21:00] Herbals/Supplements -Info Only 1 ea PO DAILY 05/08/17 [Last Taken Unknown] Lubiprostone [Amitiza 8 mcg (*)] 8 mcg PO BIDMEAL PRN 05/08/17 [Last Taken 2 Weeks Ago] Longterm Antibiotics: cefazolin 6mg IV continuous infusion [employer] Antibiotic Stop Date: 07/04/17 Discharge Medications: Refer to the Discharge Home Medication list for PRN reason. PICC Care - Routine: Yes - Orders Services needed: Home Usp Care Face to Face: I certify that this patient was under my care and that I had the required [id number] encounter meeting the encounter requirements on the discharge day. My findings support the fact that the patient is homebound as defined in CMS Chapter 7 Medicare Benefits Manual 30.1.1, The condition of the patient is such that there exists a normal inability to leave home and consequently, leaving home would require a considerable and taxing effort. - Labs/Radiology CBC Date: 05/16/17 (Tuesday, weekly) CMP Date: 05/16/17 (Tuesday, weekly) CRP Date: 05/16/17 (Tuesday, weekly) Call or Fax Lab and Imaging Results to: [id number] [facility] - Follow Up Care Current Providers and Referrals: Dalia Kapoor MD [Medical Doctor] - 05/20/17 1:00 pm Patient,NotPresent [Primary Care Provider] -
--- NOTE | 2017-05-13 11:05 | PDIAF ---
- Diagnosis Diagnosis: MSSA L5-S1 discitis/OM and bacteremia Code Status: Full Code - Medication Management Discharge Medications: Medications to Continue on Transfer ALPRAZolam [Xanax] 0.5 - 2 mg PO BID PRN 05/02/17 [Last Taken 05/08/17 02:30] Amphet Asp and D/Amphet [Adderall 20 mg (*)] 10 - 20 mg PO DAILY PRN 05/02/17 [ Last Taken Unknown] Levothyroxine [Synthroid 125 mcg (*)] 125 mcg PO DAILY06 05/02/17 [Last Taken ] Sertraline HCl [Zoloft 100mg (*)] 100 mg PO DAILY 05/02/17 [Last Taken 05/05/17] Zolpidem Tartrate [Ambien 10 mg] 10 mg PO HS PRN 05/02/17 [Last Taken 05/07/17] tiZANidine HCL [Zanaflex] 4 mg PO TID PRN 05/02/17 [Last Taken 05/07/17] HYDROmorphone HCL [Dilaudid 2 mg (*)] 2 mg PO Q4 PRN 05/08/17 [Last Taken 21:00] Herbals/Supplements -Info Only 1 ea PO DAILY 05/08/17 [Last Taken Unknown] Lubiprostone [Amitiza 8 mcg (*)] 8 mcg PO BIDMEAL PRN 05/08/17 [Last Taken 2 Weeks Ago] ceFAZolin 2 GM/DEXTROSE [Ancef 2 gm (Premix)] 2 gm IV Q8HRS #0 bag 05/13/17 [ Last Taken Unknown] [employer] Antibiotics: cefazolin 6mg IV continuous infusion [facility] Antibiotic Stop Date: 07/04/17 Discharge Medications: Refer to the Discharge Home Medication list for PRN reason. PICC Care - Routine: Yes - Orders Services needed: Home Chcf Care Face to Face: I certify that this patient was under my care and that I had the required [id number] encounter meeting the encounter requirements on the discharge day. My findings support the fact that the patient is homebound as defined in CMS Chapter 7 Medicare Benefits Manual 30.1.1, The condition of the patient is such that there exists a normal inability to leave home and consequently, leaving home would require a considerable and taxing effort. Diet Recommendation: no restrictions on diet Diet Texture: Regular Texture Diet - Labs/Radiology CBC Date: 05/16/17 (Tuesday, weekly) CMP Date: 05/16/17 (Tuesday, weekly) CRP Date: 05/16/17 (Tuesday, ) Call or Fax Lab and Imaging Results to: [id number] [facility] - Follow Up Care Current Providers and Referrals: Dalia Kapoor MD [Medical Doctor] - 05/20/17 1:00 pm Patient,NotPresent [Primary Care Provider] -
--- NOTE | 2017-05-13 11:10 | PDDCSUM ---
Discharge Summary Discharge Summary: DISCHARGE DIAGNOSES: -lumbar spine diskitis and suspected osteomyelitis at L5-S1 -Staph aureus bacteremia CONSULTANTS: Dr. Kapoor and Baljinder of Infectious Disease Dr. Romo of Neurosurgery PROCEDURES: PICC catheter placement CT scan of lumbar spine CT scan of abdomen CT-guided biopsy of L5-S1 HOSPITAL COURSE SUMMARY: This patient with previous lumbar spine surgery recently developed worsening lumbar pain without radicular symptoms. As the pain got worse over time she started to develop fevers. She was evaluated at several other centers and a diagnosis was not arrived at the finally she was called and has reported that her blood cultures from the ER visit with positive and she came to this hospital. MRI scan had been done elsewhere showing changes consistent with diskitis and possible osteomyelitis at L5-S1. Repeat cultures were obtained and bone biopsy was obtained and patient was started on empiric antibiotic therapy. When we finally got back culture results showing sensitive Staph aureus treatment was changed to Ancef antibiotic therapy. The patient has responded well with resolution of fever and resolution of her pain. There been no neurologic complications and her spine appears stable on imaging. At this point it is felt that she stable for discharge from hospital but she will need ongoing antibiotic therapy and there is a plan for 8 weeks of total antibiotic therapy. She will be followed up at [facility] with Dr. Kapoor. PENDING TEST RESULTS: None MEDICATION CHANGES: Addition of Ancef intravenously for her infection FOLLOW-UP PLAN: At [facility] within 1-2 weeks With her primary care physician within 2-3 weeks Greater than 35 minutes bedside and care coordination time today
[2017-05-13] MEDS ORDERED: ceFAZolin 2 GM/DEXTROSE 100 ML IV SCH (14:00)
== END 2017-05-13 14:20 | disposition home health service (06) | DRG 478 ==
LOC: F3N 06:26 → UNDOADMOB 06:26 → F2N 09:42 → OBSVTOIN 10:17 → F2N 05-09 11:27
PROVIDERS: ADMIT Internal Medicine; ATTEND Internal Medicine
PROC: 07DS3ZX Extraction of Vertebral Bone Marrow, Percutaneous Approach, Diagnostic (ICD-10-PCS; principal; 2017-05-09 15:08)
PROC: 0QB03ZX Excision of Lumbar Vertebra, Percutaneous Approach, Diagnostic (ICD-10-PCS; principal; 2017-05-09 15:08)
PROC: 02HV33Z Insertion of Infusion Device into Superior Vena Cava, Percutaneous Approach (ICD-10-PCS; 2017-05-12)
DX: M46.27 Osteomyelitis of vertebra, lumbosacral region (principal); F11.20 Opioid dependence, uncomplicated; M46.46 Discitis, unspecified, lumbar region; B95.61 Methicillin susceptible Staphylococcus aureus infection as the cause of diseases classified elsewhere; D64.9 Anemia, unspecified; F41.8 Other specified anxiety disorders; E03.9 Hypothyroidism, unspecified; R19.7 Diarrhea, unspecified
CPT/HCPCS: 97116-GP; 97161-GP; 97165-GO; 97530-GP; 97535-GO; C1751; J0690; J0692; J1170; J2060; J2250; J2310; J2405; J3010; J3370; Q9967